=== PATIENT | male | born 1995 | race African-American/Black ===

== ENCOUNTER 2018-10-01 13:10 | Emergency (ER) | payer OTHER ==
[~2018-10-01] VITALS: Ht 193 cm; Wt 129.3 kg
[2018-10-01 13:23] VITALS: Ht 193 cm; Wt 129.3 kg
[2018-10-01 14:02] LABS: BASOPHIL % 0.5 % (0-2); PLATELET COUNT 260 x10^3mcL (130-400)
[2018-10-01 14:08] LABS: CALCIUM 10.7 mg/dL (8.5-10.1); CARBON DIOXIDE 19.9 mmol/L (21-32); CREATININE SERUM 2.2 mg/dL (0.7-1.3); POTASSIUM SERUM 4.6 mmol/L (3.5-5.1)
[2018-10-01 14:13] LABS: BILIRUBIN TOTAL 1.46 mg/dL (0.20-1.00)
[2018-10-01 14:15] LABS: ALBUMIN 5.3 g/dL (3.4-5.0); TOTAL PROTEIN, SERUM 9.8 g/dL (6.4-8.2)
[2018-10-01 14:40] LABS: AMPHETAMINE QUAL UR POSITIVE (See below)
[2018-10-01 17:01] VITALS: BP 132/75
== END 2018-10-01 17:01 | disposition home or self-care (01) ==
LOC: ED 13:10
PROVIDERS: Emergency Medicine
DX: E86.0 Dehydration (principal); R53.1 Weakness; F19.10 Other psychoactive substance abuse, uncomplicated; R07.89 Other chest pain; I10 Essential (primary) hypertension
CPT/HCPCS: J2405